=== PATIENT | female | born 1980 | race African-American/Black ===

== ENCOUNTER 2021-01-28 17:23 | Emergency (ER) | payer OTHER ==
[~2021-01-28] VITALS: Ht 165.1 cm; Wt 79.2 kg
[2021-01-28] MEDS ORDERED: LEXA1TAB2 PO (18:14)
[2021-01-28] MEDS ORDERED: OMEP40CA4 PO (18:14)
[2021-01-29 08:39] VITALS: BP 139/86
== END 2021-01-29 09:17 | disposition home or self-care (01) ==
LOC: M ED 17:23
DX: M25.461 Effusion, right knee (principal); M71.21 Synovial cyst of popliteal space [Baker], right knee; D64.9 Anemia, unspecified; Z79.899 Other long term (current) drug therapy

== ENCOUNTER → 2021-10-23 | Outpatient (REF) ==
[~2021-10-23] MED LIST: CLAR10CA3 PO; HYDR-3363 PO; LEXA1TAB2 PO; MELA3TAB49 PO; MELO15TA28 PO; OMEP40CA4 PO
== END ==
LOC: M PLAIMG 10:48
PROVIDERS: ATTEND Internal Medicine
DX: R06.02 Shortness of breath (principal); R52 Pain, unspecified